=== PATIENT | male | born 1990 ===

== ENCOUNTER 2017-10-30 02:23 | Emergency (ER) | payer SELFPAY ==
[2017-10-30 02:26] VITALS: BMI 25.8
[2017-10-30] MEDS ORDERED: Tdap Vaccine 0.5 ml Vial (10-64 yrs) IM ONE ×2 (03:16→03:47)
[2017-10-30] MEDS ORDERED: Lidocaine 1% Inj (20ml) IJ ONE (03:17)
[2017-10-30] MEDS ORDERED: Povidone Iodine Topical 10% Sol ONE (03:31)
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
[2017-10-30] MEDS ORDERED: Lidocaine 1% 20 MG/2 ML PF AMP ONE (03:47)
[2017-10-30 03:53] VITALS: RESP 14
[2017-10-30] MEDS ORDERED: Amoxicillin-Clav 875-125 mg Tab PO STA (05:04)
[2017-10-30 05:27] VITALS: BP 125/70; PULSE 90; TEMP 98.4; O2SAT 96
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
== END 2017-10-30 05:44 | disposition home or self-care (01) ==
LOC: H.ER 02:23
DX: S09.90XA Unspecified injury of head, initial encounter (principal); S01.81XA Laceration without foreign body of other part of head, initial encounter; S02.31XA Fracture of orbital floor, right side, initial encounter for closed fracture; Y04.0XXA Assault by unarmed brawl or fight, initial encounter; Y92.89 Other specified places as the place of occurrence of the external cause

== ENCOUNTER 2017-11-07 14:18 | Emergency (ER) | payer MEDICAID ==
[2017-11-07 14:19] VITALS: BMI 25.8
[2017-11-07 14:24] VITALS: BP 128/71; PULSE 59; RESP 18; TEMP 98.1; O2SAT 100
--- NOTE | 2017-11-07 14:32 | ED PDOC ---
HPI: Wound Care - HPI Time Seen by Provider: 11/07/17 14:22 Chief Complaint (Nursing): Suture/Staple Removal Chief Complaint (Provider): Suture removal History Per: Patient Additional Complaint(s): 27 yo male, no PMH, presents to ED for suture removal. Sutures placed to rigth eyebrow 3 days ago. No pain, swelling, or bleeding from site. Past Medical History Reviewed: Nursing Documentation, Vital Signs Vital Signs: Last Vital Signs Temp 98.1 F 11/07/17 14:22 Pulse 59 L 11/07/17 14:22 Resp 18 11/07/17 14:22 BP 128/71 11/07/17 14:22 Pulse Ox 100 11/07/17 14:22 - Medical History PMH: No Chronic Diseases - Surgical History Surgical History: No Surg Hx - Family History Family History: States: No Known Family Hx - Living Arrangements Living Arrangements: With Family - Social History Current smoker - smoking cessation education provided: No - Home Medications Home Medications: Ambulatory Orders Medication Instructions Recorded Lidocaine 5% 35 gm EXT TID #1 tube 01/10/14 Amoxicillin/Clavulanate [Augmentin 1 tab PO BID #20 tab 10/30/17 875 MG-125 MG] - Allergies Allergies/Adverse Reactions: Allergies Allergy/AdvReac Type Severity Reaction Status Date / Time No Known Allergies Allergy Verified 11/07/17 14:22 Review of Systems ROS Statement: Except As Marked, All Systems Reviewed And Found Negative Skin: Positive for: Other (sutures placed) Physical Exam - Reviewed Nursing Documentation Reviewed: Yes Vital Signs Reviewed: Yes - Physical Exam Appears: Positive for: Well, Non-toxic, No Acute Distress Head Exam: Positive for: ATRAUMATIC, NORMAL INSPECTION, NORMOCEPHALIC Skin: Positive for: Normal Color, Warm, DRY Eye Exam: Positive for: Other (rigth eyebrow, [address] no surrounding edema or erythma) Cardiovascular/Chest: Positive for: Regular Rate, Rhythm Respiratory: Positive for: CNT, Normal Breath Sounds Neurologic/Psych: Positive for: Alert - ECG O2 Sat by Pulse Oximetry: 100 Medical Decision Making Medical Decision Making: Sutures removed by typewriter ribbon winder without difficulty. wound care discussed Disposition - Clinical Impression Clinical Impression: Removal of suture, Visit for wound check - Patient ED Disposition Is Patient to be Admitted: No - Disposition Disposition: Routine/Home Disposition Time: 14:33 Condition: STABLE Instructions: Stitches Removal Forms: [employer] (Portuguese)
[2017-11-07] MEDS ORDERED: Naproxen 500 MG TAB PO ONE (15:46)
== END 2017-11-07 14:47 | disposition home or self-care (01) ==
LOC: H.ER 14:18
DX: Z48.02 Encounter for removal of sutures (principal)

== ENCOUNTER 2018-04-09 01:32 | Emergency (ER) | payer SELFPAY ==
[2018-04-09 01:46] VITALS: BMI 28.4
[2018-04-09 01:49] VITALS: BP 115/88; PULSE 57; RESP 18; TEMP 98.9; O2SAT 98
--- NOTE | 2018-04-09 02:49 | ED PDOC ---
HPI: Chest Pain Time Seen by Provider: 04/09/18 02:00 Chief Complaint (Nursing): Flu-like Symptoms Chief Complaint (Provider): chest pain History Per: Patient History/Exam Limitations: no limitations Onset/Duration Of Symptoms: Hrs Current Symptoms Are (Timing): Still Present Additional Complaint(s): 27 y/o Male with no PMH who presents with chest pain after episode of chest pain that occurred tonight after vomiting. Pt states that he was sleeping when he suddenly woke up with nausea and had an episode of vomiting. AFter this episode, he had sudden onset chest pain over his sternum. This happened to him approximately 2 months ago after a coughing episode but was self-limited. He has not taken anything for the pain since it happened. He rates the pain 8/10 on pa in scale. He feels SOB b/c he has too much pain with deep breaths. Denies diarrhea, abdominal pain, fever, cough, chills, night sweats, dizziness, radiation of pain to back or jaw. Denies palpitations. Past Medical History Reviewed: Historical Data, Nursing Documentation, Vital Signs Vital Signs: Last Vital Signs Temp 98.9 F 04/09/18 01:47 Pulse 57 L 04/09/18 01:47 Resp 18 04/09/18 01:47 BP 115/88 04/09/18 01:47 Pulse Ox 98 04/09/18 01:47 - Medical History PMH: No Chronic Diseases - Surgical History Surgical History: No Surg Hx - Family History Family History: States: Unknown Family Hx - Home Medications Home Medications: Ambulatory Orders Medication Instructions Recorded Lidocaine 5% 35 gm EXT TID #1 tube 01/10/14 Amoxicillin/Clavulanate [Augmentin 1 tab PO BID #20 tab 10/30/17 875 MG-125 MG] Ibuprofen [Motrin Tab] 600 mg PO Q6H PRN 7 Days tab 04/09/18 - Allergies Allergies/Adverse Reactions: Allergies Allergy/AdvReac Type Severity Reaction Status Date / Time No Known Allergies Allergy Verified 04/09/18 01:45 Review of Systems Constitutional: Negative for: Fever, Chills, Sweats ENT: Negative for: Ear Pain, Throat Pain Cardiovascular: Positive for: Chest Pain. Negative for: Palpitations, Edema, Light Headedness Respiratory: Positive for: Shortness of Breath. Negative for: Cough Physical Exam - Reviewed Nursing Documentation Reviewed: Yes Vital Signs Reviewed: Yes - Physical Exam Appears: Positive for: Uncomfortable Head Exam: Positive for: ATRAUMATIC Skin: Positive for: Normal Color Eye Exam: Positive for: Normal appearance. Negative for: Conjunctival injection ENT: Positive for: Normal ENT Inspection Neck: Positive for: Normal, Painless ROM Cardiovascular/Chest: Positive for: Regular Rate, Rhythm. Negative for: Chest Non Tender (+ tenderness on palpation over sternum. Symmetrical chest rise. ) Respiratory: Positive for: Normal Breath Sounds - ECG O2 Sat by Pulse Oximetry: 98 Medical Decision Making Medical Decision Making: Chest PA and lateral with ribs Ibuprofen 600mg PO x 1 EKG: sinus with sinus arrhythmia, HR 61, no ischemic change. Chest and rib x-ray negative for acute abnormality. 4:28am: Re-evaluated: Pain has improved. Pt stable for d/c home with Ibuprofen for pain. Disposition - Clinical Impression Clinical Impression: Costochondral chest pain - Patient ED Disposition Is Patient to be Admitted: No Counseled Patient/Family Regarding: Studies Performed, Diagnosis, Rx Given - Disposition Referrals: Navin Wade MD [Staff Provider] - Disposition: Routine/Home Disposition Time: 05:13 Condition: STABLE Additional Instructions: Take Ibuprofen for the pain. Return to ER if you start to have worsening chest pain, develop shortness of breath, dizziness. F/u with your primary care doctor as needed. Prescriptions: Ibuprofen [Motrin Tab] 600 mg PO Q6H PRN 7 Days tab PRN Reason: Pain, Moderate (4-7) Instructions: Costochondritis (DC) Forms: [employer] (Emirati) Print Language: CYMRO
--- NOTE | 2018-04-09 09:56 | RAD ---
Date of service: 04/09/2018 PROCEDURE: Radiographs of the chest and bilateral ribs HISTORY: acute sternal chest pain COMPARISON: The TECHNIQUE: Frontal radiograph of the chest and multiple oblique radiographs of the bilateral ribs were obtained. FINDINGS: RIGHT RIBS: No acute fracture or focal lesion visualized. LEFT RIBS: No acute fracture or focal lesion visualized. LUNGS: Clear. PLEURA: No pneumothorax or pleural fluid. CARDIOVASCULAR: Normal cardiac size. No pulmonary vascular congestion. No aortic atherosclerotic calcification present OTHER FINDINGS: None. IMPRESSION: No acute rib fracture. Clear lungs.
--- NOTE | 2018-04-09 21:05 | CARD ---
APPROVED REPORT Date of service: 04/09/2018 EKG Measurement Heart [id number] <Conclusion> Normal sinus rhythm with sinus arrhythmia Normal ECG
== END 2018-04-09 05:58 | disposition home or self-care (01) ==
LOC: H.ER 01:32
DX: R07.9 Chest pain, unspecified (principal)